=== PATIENT | male | born 1970 | race Caucasian/White ===

== ENCOUNTER → 2018-07-25 08:56 | Outpatient (CLI) | payer OTHER, SELFPAY ==
[2018-07-25 09:56] LABS: Absolute Lymphocyte Count 1.18 X10^3/ul (0.83-4.51); Absolute Neutrophil Count 2.9 X10^3/uL (2.0-7.7); Basophil# 0.02 X10^3/uL; Basophil% 0.4 % (0-1); Eosinophil# 0.05 X10^3/uL; Eosinophils% 1.1 % (0-5); Hematocrit 36.5 % (40-54); Hemoglobin 13.1 g/dl (13.0-16.5); Lymphocyte # 1.18 X10^3/ul (4.0); Lymphocyte % 25.9 % (19-41); Mean Corp Hgb Conc 35.9 g/gl (32-36); Mean Corpuscular Hgb 30.9 pg (27.0-32.0); Mean Corpuscular Volume 86.1 fL (80-94); Mean Platelet Vol. 10.1 fl (6.2-12.0); Monocyte# 0.37 X10^3/uL; Monocyte% 8.1 % (0-10); Neutrophil # 2.93 X10^3/uL (2.7-7.7); Neutrophil % 64.3 % (47-70); Platelet Count 160 K/mm3 (150-450); RBC Distribution Width CV 12.4 % (11.6-14.6); RBC Distribution Width SD 37.8 fl (35.1-43.9); Red Blood Count 4.24 M/mm3 (4.6-6.2); White Blood Count 4.6 K/mm3 (4.4-11.0)
[2018-07-25 09:59] LABS: POSITIVE COUNT NO; POSITIVE DIFFERENTIAL NO; POSITIVE MORPHOLOGY NO
[2018-07-25 10:23] LABS: ALB/GLOB Ratio 1.2 RATIO (0.9-2.4); AST(SGOT) 15 U/L (15-37); Alanine Aminotransfer ALT/SGPT 30 U/L (16-61); Albumin, Serum 3.8 g/dL (3.2-5.0); Alkaline Phosphatase 33 U/L (45-117); Anion Gap 6 (5-15); BUN 17 mg/dL (7-18); BUN/Creat Ratio 19.5 RATIO (10-20); Calcium,Total 9.2 mg/dL (8.5-10.1); Chloride 102 mmol/L (98-107); Cholesterol 143 mg/dL (200); Creatinine, Serum 0.87 mg/dL (0.70-1.30); EST Glomerular Filtration Rate 99 mL/min (>60); Est Glom Filt Rate - Afr Amer 120 mL/min (>60); Globulin 3.2 g/dL (2.2-4.2); Glucose 109 mg/dL (74-106); High Density Lipoprotein 38 mg/dL; Potassium 4.7 mmol/L (3.5-5.1); Sodium Level 138 mmol/L (136-145); Triglycerides 98 mg/dL; Very Low Density Lipoprotein 20 mg/dL (5-40)
[2018-07-28 12:37] LABS: Hemoglobin A1c 5.9 % (4.2-6.3)
== END ==
PROVIDERS: Family Provider Nurse Practitioner Family; PCP Nurse Practitioner Family; Visit Provider Nurse Practitioner Family
DX: I10 Essential (primary) hypertension (principal); E78.5 Hyperlipidemia, unspecified; R73.01 Impaired fasting glucose
CPT/HCPCS: 36415; 80053; 80061; 83036; 85025

== ENCOUNTER 2019-02-03 09:57 | Emergency (ER) | payer OTHER, SELFPAY ==
[2019-02-03 09:58] VITALS: BP 138/77; PULSE 110; RESP 18; TEMP 37.1; O2SAT 96; BMI 30.2
[2019-02-03] MEDS: DiphenhydrAMINE 25 MG Capsule 50 MG PO (10:44)
--- NOTE | 2019-02-03 10:53 | RAD_ITS ---
STUDY: X-RAY CHEST REASON FOR EXAM: Male, 48 years old. Cough and chest congestion. Sore throat. TECHNIQUE: PA and lateral views of the chest. COMPARISON: None. FINDINGS: The lungs are clear and expanded. Scattered calcified granulomas. There is no demonstrated pleural abnormality. Normal size heart. Normal mediastinum and keith. Normal visualized pulmonary arteries. Normal visualized aortic arch and descending thoracic aorta. There are degenerative changes of the visualized thoracic spine. Normal visualized ribs, clavicles, and shoulders. There is no demonstrated abnormality of the visualized soft tissue structures of the upper abdomen. RAD/Chest PA and Lateral IMPRESSION: Normal x-ray examination of the chest. Electronically Signed: Angel Luis Webster, at 11:27 EDT , Service support ,
--- NOTE | 2019-02-03 11:09 | ED.VISSUMM ---
- ER Visit Summary Date of Service: 02/03/19 Chief Complaint: Cough, congestion, sore throat History of Present Illness: The patient is a 48 M with a 3-4-day history of congestion, cough, sore throat. Patient denies fever. He is bringing up some sputum. He denies wheezing. Physical Examination: Vital signs significant only for heart rate 110. Sitting upright in bed no acute distress. He is nontoxic appearing. Head neck examination was TMs to be clear bilaterally. He has moist mucous membranes. He has 1+ tonsils with an exudate noted on the right. Heart is regular rate and rhythm. Lungs sounds are clear. Abdomen is soft and nontender. Test Results: Rapid strep is positive. Two-view chest x-ray shows no focal infiltrate per my read. Emergency Department Course and Treatment: Patient was given Benadryl here for congestion. I discussed test results with him. He will be treated with a course of Zithromax, first dose given here. Treatment Plan: [] Disposition: Discharge Impression: Strep pharyngitis This note was generated with [employer] dictation software. It may contain incorrect words, spelling, and punctuation that were not noted in review of the chart prior to signing ED Disposition - Plan for ED Patient: Referrals: Karl Riddle, ANDER-C [Primary Care Provider] -
--- NOTE | 2019-02-03 11:11 | ED.DEP ---
ED Disposition - Plan for ED Patient: Disposition: Home or Assisted Living Instructions: ED Strep Pharyngitis Conf Prescriptions: Azithromycin [Zithromax] 250 mg PO DAILY #4 tablet Referrals: Karl Riddle, [employer] [Primary Care Provider] - 1 Week
[2019-02-03 11:18] VITALS: BP 122/80; PULSE 101
[2019-02-03] MEDS: Azithromycin 250 MG Tablet 500 MG PO (11:18)
== END 2019-02-03 11:19 | disposition home or self-care (01) ==
PROVIDERS: Emergency Provider Emergency Medicine; Family Provider Nurse Practitioner Family; PCP Nurse Practitioner Family
DX: J02.0 Streptococcal pharyngitis (principal); I10 Essential (primary) hypertension; E78.00 Pure hypercholesterolemia, unspecified; Z79.899 Other long term (current) drug therapy
CPT/HCPCS: 71046; 87077; 87880; 99283

== ENCOUNTER → 2019-03-11 | Outpatient (CLI) | payer OTHER, SELFPAY ==
[2019-03-11 13:59] LABS: Absolute Lymphocyte Count 1.27 X10^3/ul (0.83-4.51); Absolute Neutrophil Count 3.7 X10^3/uL (2.0-7.7); Basophil# 0.01 X10^3/uL; Basophil% 0.2 % (0-1); Eosinophil# 0.04 X10^3/uL; Eosinophils% 0.7 % (0-5); Hematocrit 37.7 % (40-54); Hemoglobin 13.2 g/dl (13.0-16.5); Lymphocyte # 1.27 X10^3/ul (4.0); Lymphocyte % 23.3 % (19-41); Mean Corpuscular Hgb 29.8 pg (27.0-32.0); Mean Corpuscular Volume 85.1 fL (80-94); Mean Platelet Vol. 9.9 fl (6.2-12.0); Monocyte% 7.3 % (0-10); Neutrophil # 3.72 X10^3/uL (2.7-7.7); Neutrophil % 68.3 % (47-70); Platelet Count 183 K/mm3 (150-450); RBC Distribution Width CV 12.9 % (11.6-14.6); RBC Distribution Width SD 39.1 fl (35.1-43.9); Red Blood Count 4.43 M/mm3 (4.6-6.2); White Blood Count 5.5 K/mm3 (4.4-11.0)
[2019-03-11 14:06] LABS: POSITIVE COUNT NO; POSITIVE DIFFERENTIAL NO; POSITIVE MORPHOLOGY NO
[2019-03-11 14:07] LABS: Hemoglobin A1c 6.2 % (4.2-6.3)
[2019-03-11 14:20] LABS: ALB/GLOB Ratio 1.4 RATIO (0.9-2.4); AST(SGOT) 19 U/L (15-37); Alanine Aminotransfer ALT/SGPT 35 U/L (16-61); Albumin, Serum 4.3 g/dL (3.2-5.0); Alkaline Phosphatase 39 U/L (45-117); Anion Gap 5 (5-15); BUN 14 mg/dL (7-18); BUN/Creat Ratio 16.3 RATIO (10-20); Chloride 99 mmol/L (98-107); Cholesterol 148 mg/dL (200); Creatinine, Serum 0.86 mg/dL (0.70-1.30); EST Glomerular Filtration Rate 100 mL/min (>60); Est Glom Filt Rate - Afr Amer 121 mL/min (>60); Globulin 3.1 g/dL (2.2-4.2); Glucose 102 mg/dL (74-106); High Density Lipoprotein 38 mg/dL; Potassium 4.1 mmol/L (3.5-5.1); Protein, Total 7.4 g/dL (6.4-8.2); Sodium Level 136 mmol/L (136-145); Triglycerides 104 mg/dL; Very Low Density Lipoprotein 21 mg/dL (5-40)
== END | disposition home or self-care (01) ==
LOC: LAB 13:19
PROVIDERS: Family Provider Nurse Practitioner Family; PCP Nurse Practitioner Family; Referring Provider Nurse Practitioner Family; Visit Provider Nurse Practitioner Family
DX: E78.5 Hyperlipidemia, unspecified (principal); I10 Essential (primary) hypertension; R73.01 Impaired fasting glucose
CPT/HCPCS: 36415; 80053; 80061; 83036; 85025

== ENCOUNTER → 2019-09-18 | Outpatient (CLI) | payer OTHER, SELFPAY ==
[2019-09-18 11:04] LABS: Absolute Lymphocyte Count 1.17 X10^3/uL (0.83-4.51); Absolute Neutrophil Count 4.5 X10^3/uL (2.0-7.7); Basophil# 0.04 X10^3/uL; Basophil% 0.6 % (0-1); Eosinophil# 0.06 X10^3/uL; Hematocrit 39.9 % (40-54); Hemoglobin 13.5 g/dL (13.0-16.5); Lymphocyte # 1.17 X10^3/ul (4.0); Lymphocyte % 18.5 % (19-41); Mean Corp Hgb Conc 33.8 g/dL (32-36); Mean Corpuscular Hgb 30.1 pg (27.0-32.0); Mean Corpuscular Volume 88.9 fL (80-94); Mean Platelet Vol. 9.9 fl (6.2-12.0); Monocyte# 0.48 X10^3/uL; Monocyte% 7.6 % (0-10); NRBC Flagged by Analyzer 0 % (0-5); Neutrophil # 4.54 X10^3/uL (2.7-7.7); Platelet Count 176 K/mm3 (150-450); RBC Distribution Width CV 12.7 % (11.6-14.6); RBC Distribution Width SD 41.5 fl (35.1-43.9); Red Blood Count 4.49 M/mm3 (4.6-6.2); White Blood Count 6.3 K/mm3 (4.4-11.0)
[2019-09-18 11:29] LABS: ALB/GLOB Ratio 1.4 RATIO (0.9-2.4); AST(SGOT) 14 U/L (15-37); Alanine Aminotransfer ALT/SGPT 30 U/L (16-61); Albumin, Serum 4.2 g/dL (3.2-5.0); Alkaline Phosphatase 40 U/L (45-117); Anion Gap 6 (5-15); BUN 11 mg/dL (7-18); BUN/Creat Ratio 13.2 RATIO (10-20); Calcium,Total 9.3 mg/dL (8.5-10.1); Chloride 101 mmol/L (98-107); Cholesterol 142 mg/dL (200); Creatinine, Serum 0.84 mg/dL (0.70-1.30); EST Glomerular Filtration Rate 103 mL/min (>60); Est Glom Filt Rate - Afr Amer 125 mL/min (>60); Globulin 3.1 g/dL (2.2-4.2); Glucose 123 mg/dL (74-106); High Density Lipoprotein 40 mg/dL; Potassium 5.3 mmol/L (3.5-5.1); Protein, Total 7.3 g/dL (6.4-8.2); Sodium Level 137 mmol/L (136-145); Triglycerides 119 mg/dL; Very Low Density Lipoprotein 24 mg/dL (5-40)
== END | disposition home or self-care (01) ==
LOC: LAB 10:23
PROVIDERS: Family Provider Nurse Practitioner Family; PCP Nurse Practitioner Family; Referring Provider Nurse Practitioner Family; Visit Provider Nurse Practitioner Family
DX: R73.01 Impaired fasting glucose (principal); E78.5 Hyperlipidemia, unspecified; I10 Essential (primary) hypertension
CPT/HCPCS: 36415; 80053; 80061; 83036; 85025

== ENCOUNTER → 2019-11-15 07:18 | Outpatient (CLI) | payer OTHER, SELFPAY ==
--- NOTE | 2019-11-15 07:26 | EKG12_ITS ---
Test Reason : HYPERTENSION Blood Pressure : / mmHG Vent. Rate : 061 BPM Atrial Rate : 061 BPM P-R Int : 136 ms QRS Dur : 110 ms QT Int : 430 ms P-R-T Axes : 025 016 021 degrees QTc Int : 432 ms Normal sinus rhythm with sinus arrhythmia Normal ECG Confirmed by CALLI MCCORMACK, CHARI ([id number]), index editor YOLANDE CASTILLO ([id number]) on 11/16/2019 8:45:45 AM Referred By: Karl Riddle Confirmed By:CHARI MCCURDY MD
[2019-11-26 16:08] LABS: Dopamine, UR 47 ug/L (Undefined); Epinephrine, 24Ur 3 ug/24 hr (0-20); Epinephrine, Ur 1 ug/L (Undefined); Norepinephrine, 24Ur 31 ug/24 hr (0-135); Norepinephrine, Ur 11 ug/L (Undefined)
[2019-11-26 16:54] LABS: Dopamine, 24Ur 134 ug/24 hr (0-510)
== END ==
PROVIDERS: Family Provider Nurse Practitioner Family; PCP Nurse Practitioner Family; Referring Provider Nurse Practitioner Family; Visit Provider Nurse Practitioner Family
DX: I10 Essential (primary) hypertension (principal); R01.1 Cardiac murmur, unspecified; G47.10 Hypersomnia, unspecified
CPT/HCPCS: 81050; 82384; 93005; 93306

== ENCOUNTER → 2019-11-16 20:04 | Outpatient (CLI) | payer OTHER, SELFPAY | PROVIDERS: Family Provider Nurse Practitioner Family; PCP Nurse Practitioner Family; Referring Provider Nurse Practitioner Family; Visit Provider Nurse Practitioner Family | DX: G47.10 Hypersomnia, unspecified (principal) | CPT/HCPCS: 95810 ==

== ENCOUNTER → 2020-04-22 11:14 | Outpatient (CLI) | payer OTHER, SELFPAY ==
[2020-04-22 11:57] LABS: Hematocrit 37.5 % (40-54); Hemoglobin 12.6 g/dL (13.0-16.5); Mean Corp Hgb Conc 33.6 g/dL (32-36); Mean Corpuscular Hgb 29.9 pg (27.0-32.0); Mean Corpuscular Volume 88.9 fL (80-94); Mean Platelet Vol. 10.2 fl (6.2-12.0); Platelet Count 182 K/mm3 (150-450); RBC Distribution Width CV 12.3 % (11.6-14.6); RBC Distribution Width SD 39.8 fl (35.1-43.9); Red Blood Count 4.22 M/mm3 (4.6-6.2); White Blood Count 4.3 K/mm3 (4.4-11.0)
[2020-04-22 12:28] LABS: ALB/GLOB Ratio 1.2 RATIO (0.9-2.4); AST(SGOT) 14 U/L (15-37); Alanine Aminotransfer ALT/SGPT 31 U/L (16-61); Albumin, Serum 3.9 g/dL (3.2-5.0); Alkaline Phosphatase 47 U/L (45-117); Anion Gap 6 (5-15); BUN 13 mg/dL (7-18); BUN/Creat Ratio 14.7 RATIO (10-20); Calcium,Total 9.2 mg/dL (8.5-10.1); Chloride 103 mmol/L (98-107); Cholesterol 127 mg/dL (200); Creatinine, Serum 0.88 mg/dL (0.70-1.30); EST Glomerular Filtration Rate 96 mL/min (>60); Est Glom Filt Rate - Afr Amer 117 mL/min (>60); Globulin 3.3 g/dL (2.2-4.2); Glucose 182 mg/dL (74-106); High Density Lipoprotein 40 mg/dL; PSA,Total - Annual Screen 0.27 ng/mL (0.00-4.00); Potassium 4.5 mmol/L (3.5-5.1); Protein, Total 7.2 g/dL (6.4-8.2); Sodium Level 139 mmol/L (136-145); Triglycerides 96 mg/dL; Very Low Density Lipoprotein 19 mg/dL (5-40)
[2020-04-22 12:38] LABS: Hemoglobin A1c 6.1 % (3.8-5.6)
== END ==
PROVIDERS: PCP Nurse Practitioner Family; Referring Provider Nurse Practitioner Family; Visit Provider Nurse Practitioner Family
DX: E78.5 Hyperlipidemia, unspecified (principal); R73.01 Impaired fasting glucose; Z12.5 Encounter for screening for malignant neoplasm of prostate; I10 Essential (primary) hypertension
CPT/HCPCS: 36415; 80053; 80061; 83036; 84153; 85027; G0103

== ENCOUNTER → 2020-12-02 11:14 | Outpatient (CLI) | payer OTHER, SELFPAY ==
[2020-12-02 11:37] LABS: Hematocrit 39.1 % (40-54); Hemoglobin 13.3 g/dL (13.0-16.5); Mean Corpuscular Volume 88.1 fL (80-94); Mean Platelet Vol. 9.7 fl (6.2-12.0); Platelet Count 183 K/mm3 (150-450); RBC Distribution Width CV 12.6 % (11.6-14.6); RBC Distribution Width SD 40.5 fl (35.1-43.9); Red Blood Count 4.44 M/mm3 (4.6-6.2); White Blood Count 5.9 K/mm3 (4.4-11.0)
[2020-12-02 11:49] LABS: Hemoglobin A1c 6.5 % (3.8-5.6)
[2020-12-02 11:52] LABS: ALB/GLOB Ratio 1.2 RATIO (0.9-2.4); AST(SGOT) 18 U/L (15-37); Alanine Aminotransfer ALT/SGPT 41 U/L (16-61); Albumin, Serum 3.8 g/dL (3.2-5.0); Alkaline Phosphatase 51 U/L (45-117); Anion Gap 2 (5-15); BUN 11 mg/dL (7-18); Calcium,Total 8.9 mg/dL (8.5-10.1); Chloride 104 mmol/L (98-107); Cholesterol 159 mg/dL (200); Creatinine, Serum 0.84 mg/dL (0.70-1.30); EST Glomerular Filtration Rate 101 mL/min (>60); Est Glom Filt Rate - Afr Amer 122 mL/min (>60); Globulin 3.2 g/dL (2.2-4.2); Glucose 108 mg/dL (74-106); High Density Lipoprotein 43 mg/dL; Potassium 4.4 mmol/L (3.5-5.1); Sodium Level 137 mmol/L (136-145); Triglycerides 129 mg/dL; Very Low Density Lipoprotein 26 mg/dL (5-40)
== END ==
PROVIDERS: PCP Nurse Practitioner Family; Referring Provider Nurse Practitioner Family; Visit Provider Nurse Practitioner Family
DX: I10 Essential (primary) hypertension (principal); R73.01 Impaired fasting glucose; E78.5 Hyperlipidemia, unspecified
CPT/HCPCS: 36415; 80053; 80061; 83036; 85027

== ENCOUNTER → 2021-06-30 11:57 | Outpatient (CLI) | payer BC, SELFPAY ==
[2021-06-30 12:11] LABS: Hematocrit 38.2 % (40-54); Mean Corpuscular Hgb 29.9 pg (27.0-32.0); Mean Corpuscular Volume 87.8 fL (80-94); Mean Platelet Vol. 9.7 fl (6.2-12.0); Platelet Count 181 K/mm3 (150-450); RBC Distribution Width CV 12.4 % (11.6-14.6); Red Blood Count 4.35 M/mm3 (4.6-6.2); White Blood Count 5.4 K/mm3 (4.4-11.0)
[2021-06-30 12:31] LABS: ALB/GLOB Ratio 1.2 RATIO (0.9-2.4); AST(SGOT) 15 U/L (15-37); Alanine Aminotransfer ALT/SGPT 30 U/L (16-61); Alkaline Phosphatase 41 U/L (45-117); Anion Gap 6 (5-15); BUN 11 mg/dL (7-18); BUN/Creat Ratio 14.9 RATIO (10-20); Calcium,Total 9.2 mg/dL (8.5-10.1); Chloride 100 mmol/L (98-107); Cholesterol 141 mg/dL (200); Creatinine, Serum 0.74 mg/dL (0.70-1.30); EST Glomerular Filtration Rate 118 mL/min (>60); Est Glom Filt Rate - Afr Amer 143 mL/min (>60); Globulin 3.4 g/dL (2.2-4.2); Glucose 113 mg/dL (74-106); High Density Lipoprotein 49 mg/dL; Protein, Total 7.4 g/dL (6.4-8.2); Sodium Level 136 mmol/L (136-145); Triglycerides 71 mg/dL; Very Low Density Lipoprotein 14 mg/dL (5-40)
[2021-06-30 12:35] LABS: Hemoglobin A1c 6.1 % (3.8-5.6)
== END ==
PROVIDERS: PCP Nurse Practitioner Family; Referring Provider Nurse Practitioner Family; Visit Provider Nurse Practitioner Family
DX: R73.01 Impaired fasting glucose (principal); I10 Essential (primary) hypertension; E78.5 Hyperlipidemia, unspecified
CPT/HCPCS: 36415; 80053; 80061; 83036; 85027

== ENCOUNTER 2022-02-02 11:11 | Outpatient (CLI) | payer BC, SELFPAY ==
[2022-02-02 11:32] LABS: Hematocrit 36.9 % (40-54); Hemoglobin 12.9 g/dL (13.0-16.5); Mean Corpuscular Hgb 30.4 pg (27.0-32.0); Mean Corpuscular Volume 86.8 fL (80-94); Mean Platelet Vol. 9.9 fl (6.2-12.0); Platelet Count 186 K/mm3 (150-450); RBC Distribution Width SD 40.3 fl (35.1-43.9); Red Blood Count 4.25 M/mm3 (4.6-6.2); White Blood Count 6.2 K/mm3 (4.4-11.0)
[2022-02-02 12:01] LABS: ALB/GLOB Ratio 1.2 RATIO (0.9-2.4); AST(SGOT) 20 U/L (15-37); Alanine Aminotransfer ALT/SGPT 50 U/L (16-61); Alkaline Phosphatase 45 U/L (45-117); Anion Gap 3 (5-15); BUN 13 mg/dL (7-18); BUN/Creat Ratio 16.1 RATIO (10-20); Calcium,Total 9.3 mg/dL (8.5-10.1); Chloride 103 mmol/L (98-107); Cholesterol 151 mg/dL (200); Creatinine, Serum 0.81 mg/dL (0.70-1.30); EST Glomerular Filtration Rate 106 mL/min (>60); Est Glom Filt Rate - Afr Amer 129 mL/min (>60); Globulin 3.2 g/dL (2.2-4.2); Glucose 141 mg/dL (74-106); High Density Lipoprotein 45 mg/dL; Potassium 4.3 mmol/L (3.5-5.1); Protein, Total 7.2 g/dL (6.4-8.2); Sodium Level 137 mmol/L (136-145); Triglycerides 116 mg/dL; Very Low Density Lipoprotein 23 mg/dL (5-40)
[2022-02-02 12:06] LABS: Hemoglobin A1c 6.6 % (3.8-5.6)
== END 2022-02-02 23:59 | disposition home or self-care (01) ==
PROVIDERS: PCP Nurse Practitioner Family; Referring Provider Nurse Practitioner Family; Visit Provider Nurse Practitioner Family
DX: R73.01 Impaired fasting glucose (principal); I10 Essential (primary) hypertension; E78.5 Hyperlipidemia, unspecified; D64.9 Anemia, unspecified
CPT/HCPCS: 36415; 80053; 80061; 83036; 85027

== ENCOUNTER → 2022-08-31 | Outpatient (CLI) | payer BC, SELFPAY ==
[2022-08-31 12:28] LABS: Hemoglobin A1c 6.6 % (3.8-5.6)
[2022-08-31 12:43] LABS: ALB/GLOB Ratio 1.2 RATIO (0.9-2.4); AST(SGOT) 14 U/L (15-37); Alanine Aminotransfer ALT/SGPT 31 U/L (16-61); Albumin, Serum 3.9 g/dL (3.2-5.0); Alkaline Phosphatase 45 U/L (45-117); Anion Gap 5 (5-15); BUN 12 mg/dL (7-18); BUN/Creat Ratio 15.6 RATIO (10-20); Calcium,Total 9.4 mg/dL (8.5-10.1); Chloride 103 mmol/L (98-107); Cholesterol 145 mg/dL (200); Creatinine, Serum 0.77 mg/dL (0.70-1.30); EST Glomerular Filtration Rate 112 mL/min (>60); Est Glom Filt Rate - Afr Amer 136 mL/min (>60); Globulin 3.2 g/dL (2.2-4.2); Glucose 126 mg/dL (74-106); High Density Lipoprotein 50 mg/dL; PSA,Total - Annual Screen 0.41 ng/mL (0.00-4.00); Potassium 4.2 mmol/L (3.5-5.1); Protein, Total 7.1 g/dL (6.4-8.2); Sodium Level 138 mmol/L (136-145); Triglycerides 105 mg/dL; Very Low Density Lipoprotein 21 mg/dL (5-40)
== END | disposition home or self-care (01) ==
LOC: LAB 11:27
PROVIDERS: PCP Nurse Practitioner Family; Referring Provider Nurse Practitioner Family; Visit Provider Nurse Practitioner Family
DX: R73.01 Impaired fasting glucose (principal); I10 Essential (primary) hypertension; E78.5 Hyperlipidemia, unspecified; E78.1 Pure hyperglyceridemia; Z12.5 Encounter for screening for malignant neoplasm of prostate
CPT/HCPCS: 36415; 80053; 80061; 83036; 84153; G0103

== ENCOUNTER → 2023-03-29 | Outpatient (CLI) | payer BC, SELFPAY ==
[2023-03-29 12:21] LABS: Hemoglobin A1c 7.2 % (3.8-5.6)
[2023-03-29 12:49] LABS: ALB/GLOB Ratio 1.1 RATIO (0.9-2.4); AST(SGOT) 39 U/L (15-37); Alanine Aminotransfer ALT/SGPT 69 U/L (16-61); Albumin, Serum 3.9 g/dL (3.2-5.0); Alkaline Phosphatase 51 U/L (45-117); Anion Gap 4 (5-15); BUN 11 mg/dL (7-18); BUN/Creat Ratio 14.6 RATIO (10-20); Calcium,Total 9.8 mg/dL (8.5-10.1); Chloride 104 mmol/L (98-107); Cholesterol 160 mg/dL (200); Creatinine, Serum 0.75 mg/dL (0.70-1.30); EST Glomerular Filtration Rate 115 mL/min (>60); Est Glom Filt Rate - Afr Amer 139 mL/min (>60); Globulin 3.5 g/dL (2.2-4.2); Glucose 139 mg/dL (74-106); High Density Lipoprotein 42 mg/dL; Protein, Total 7.4 g/dL (6.4-8.2); Sodium Level 139 mmol/L (136-145); Triglycerides 114 mg/dL; Very Low Density Lipoprotein 23 mg/dL (5-40)
== END | disposition home or self-care (01) ==
LOC: LAB 11:39
PROVIDERS: PCP Nurse Practitioner Family; Visit Provider Nurse Practitioner Family
DX: R73.01 Impaired fasting glucose (principal); I10 Essential (primary) hypertension; E78.1 Pure hyperglyceridemia; E78.5 Hyperlipidemia, unspecified
CPT/HCPCS: 36415; 80053; 80061; 83036

== ENCOUNTER → 2023-08-13 | Outpatient (CLI) | payer BC, SELFPAY ==
[2023-08-13 16:38] LABS: ALB/GLOB Ratio 1.4 RATIO (0.9-2.4); AST(SGOT) 15 U/L (15-37); Alanine Aminotransfer ALT/SGPT 31 U/L (16-61); Albumin, Serum 3.9 g/dL (3.2-5.0); Alkaline Phosphatase 42 U/L (45-117); Anion Gap 6 (5-15); BUN 14 mg/dL (7-18); BUN/Creat Ratio 19.8 RATIO (10-20); Calcium,Total 8.9 mg/dL (8.5-10.1); Chloride 99 mmol/L (98-107); Cholesterol 98 mg/dL (200); Creatinine, Serum 0.71 mg/dL (0.70-1.30); EST Glomerular Filtration Rate 123 mL/min (>60); Est Glom Filt Rate - Afr Amer 149 mL/min (>60); Globulin 2.8 g/dL (2.2-4.2); Glucose 82 mg/dL (74-106); High Density Lipoprotein 48 mg/dL; Potassium 3.2 mmol/L (3.5-5.1); Protein, Total 6.7 g/dL (6.4-8.2); Sodium Level 135 mmol/L (136-145); Triglycerides 48 mg/dL; Very Low Density Lipoprotein 10 mg/dL (5-40)
[2023-08-13 17:12] LABS: Microalbumin,Random Urine < 5.0 mg/L (NO RANGE EST.)
== END | disposition home or self-care (01) ==
LOC: LAB 15:39
PROVIDERS: PCP Nurse Practitioner Family; Visit Provider Nurse Practitioner Family
DX: E78.5 Hyperlipidemia, unspecified (principal); E78.6 Lipoprotein deficiency; E78.1 Pure hyperglyceridemia; I10 Essential (primary) hypertension; R73.01 Impaired fasting glucose; Z12.5 Encounter for screening for malignant neoplasm of prostate
CPT/HCPCS: 36415; 80053; 80061; 82043; 82570

== ENCOUNTER → 2024-03-20 | Outpatient (CLI) | payer BC, SELFPAY ==
[2024-03-20 12:25] LABS: ALB/GLOB Ratio 1.3 RATIO (0.9-2.4); AST(SGOT) 13 U/L (15-37); Alanine Aminotransfer ALT/SGPT 28 U/L (16-61); Alkaline Phosphatase 39 U/L (45-117); Anion Gap 5 (5-15); BUN 16 mg/dL (7-18); BUN/Creat Ratio 25.4 RATIO (10-20); Calcium,Total 9.6 mg/dL (8.5-10.1); Chloride 103 mmol/L (98-107); Cholesterol 102 mg/dL (200); Creatinine, Serum 0.63 mg/dL (0.70-1.30); EST Glomerular Filtration Rate 140 mL/min (>60); Est Glom Filt Rate - Afr Amer 170 mL/min (>60); Glucose 112 mg/dL (74-106); High Density Lipoprotein 49 mg/dL; Potassium 4.5 mmol/L (3.5-5.1); Sodium Level 138 mmol/L (136-145); Triglycerides 59 mg/dL; Very Low Density Lipoprotein 12 mg/dL (5-40)
== END | disposition home or self-care (01) ==
LOC: LAB 11:36
PROVIDERS: PCP Nurse Practitioner Family; Visit Provider Nurse Practitioner Family
DX: I10 Essential (primary) hypertension (principal); E11.9 Type 2 diabetes mellitus without complications; E78.5 Hyperlipidemia, unspecified; R79.89 Other specified abnormal findings of blood chemistry
CPT/HCPCS: 36415; 80053; 80061; 83036

== ENCOUNTER → 2024-10-19 | Outpatient (CLI) | payer BC, SELFPAY ==
[2024-10-19 14:35] LABS: ALB/GLOB Ratio 1.3 RATIO (0.9-2.4); AST(SGOT) 18 U/L (15-37); Alanine Aminotransfer ALT/SGPT 25 U/L (16-61); Albumin, Serum 3.9 g/dL (3.2-5.0); Alkaline Phosphatase 36 U/L (45-117); Anion Gap 6 (5-15); BUN 14 mg/dL (7-18); BUN/Creat Ratio 19.9 RATIO (10-20); Calcium,Total 9.8 mg/dL (8.5-10.1); Chloride 106 mmol/L (98-107); Cholesterol 129 mg/dL (200); EST Glomerular Filtration Rate 124 mL/min (>60); Est Glom Filt Rate - Afr Amer 150 mL/min (>60); Glucose 105 mg/dL (74-106); High Density Lipoprotein 51 mg/dL; PSA,Total - Annual Screen 0.24 ng/mL (0.00-4.00); Potassium 3.9 mmol/L (3.5-5.1); Protein, Total 6.9 g/dL (6.4-8.2); Sodium Level 141 mmol/L (136-145); Triglycerides 46 mg/dL; Very Low Density Lipoprotein 9 mg/dL (5-40)
[2024-10-19 14:49] LABS: Hemoglobin A1c 5.1 % (3.8-5.6)
[2024-10-19 19:28] LABS: Creatinine, Urine (random) < 13.00 mg/dL (NO RANGE EST.); Microalbumin,Random Urine < 5.0 mg/L (NO RANGE EST.)
== END | disposition home or self-care (01) ==
LOC: LAB 12:57
PROVIDERS: PCP Nurse Practitioner Family; Referring Provider Nurse Practitioner Family; Visit Provider Nurse Practitioner Family
DX: Z12.5 Encounter for screening for malignant neoplasm of prostate (principal); E11.9 Type 2 diabetes mellitus without complications; I10 Essential (primary) hypertension; E78.5 Hyperlipidemia, unspecified
CPT/HCPCS: 36415; 80053; 80061; 82043; 82570; 83036; 84153; G0103

== ENCOUNTER → 2025-05-28 | Outpatient (CLI) | payer BC, SELFPAY ==
--- OUTSIDE RECORDS SUMMARY | 2025-05-28 11:29 | XMS RPT_ITS | CCD ---
Author Organization [facility] Informat ion Partnership [facility] Care Team Providers Care Control Technician Name Role Phone JANESSA VALDEZ - ZION, LILIYA Perales Primary Care Phys ician JANESAS Sheridan CNP, LILIYA Perales Attending U lorraineailgladys RIDDLE APRN - ZION, LILIYA Perales Primary Care U navailable Janessa CLINIC ADMINISTRATOR, Liliya Howard Referring Unav ailable Janessa CLINIC ADMINISTRATOR, Liliya Howard Attending Unav ailable Janessa CLINIC ADMINISTRATOR, Liliya Howard Primary Care Unav ailable Hinds CLINIC ADMINISTRATOR, Liliya Howard Attending Unav ailable Hinds CLINIC ADMINISTRATOR, Liliya Howard Primary Care Unav ailable Medications Current Medications Medication Drug Class(es) Dates Sig (Normalized) Sig (Original) amLODIPine 5 mg oral tablet (1 source) Dihydropyridine Calcium Channel Dileep Start: 03-25-2024 End: 09-21-2024 Norvasc 5 mg oral tablet Dose : 5 mg = 1 tab(s), Oral, qDay, # 90 tab(s), 1 Refill(s), Pharmacy: [facility], HTN, goal below 140/90, 176, cm, 03/25/24 15:20:00 EDT, Height, kg, 03/25/24 15:20:00 EDT, Dosing Weight Start Date: 03/25/24 Stop Date: 09/21/24 Status: Ordered azithromycin 250 mg oral tablet (3 sources) Macrolide Antimicrobial Start: 02-03-2019 take 250 mg by mouth once daily Azithromycin Active 250 MG PO DAILY February 03, 2019 12:00am fenofibrate 54 mg oral tablet (4 sources) Peroxisome Proliferator Receptor alpha Agonist Start: 03-25-2024 End: 09-21-2024 fenofibrate 54 mg oral tablet Dose : 54 mg = 1 tab(s), Oral, qDay, # 90 tab(s), 1 Refill(s), Pharmacy: [facility], Hyperlipidemia LDL goal Start Date: 03/25/24 Stop Date: 09/21/24 Status: Ordered Start: 02-03-2019 take 48 mg by mouth once daily Fenofibrate Nanocrystallized Active 48 MG PO DAILY February 03, 2019 12:00am hydroCHLOROthiazide 25 mg / lisinopril 20 mg oral tablet (3 sources) Thiazide Diuretic, Angiotensin Converting Enzyme Inhibitor Start: 02-03-2019 take 1 tablet by mouth once daily Lisinopril-Hydrochlorothiazide Active 1 TABLET PO DAILY February 03, 2019 12:00am hydroCHLOROthiazide 25 mg / valsartan 320 mg oral tablet (1 source) Thiazide Diuretic, Angiotensin 2 Receptor Dileep Start: 03-25-2024 End: 09-21-2024 take 1 tablet by mouth once daily Diovan HCT 320 mg-25 mg oral tablet Dose = 1 tab(s), Oral, qDay, # 90 tab(s), 1 Refill(s), Pharmacy: [facility], HTN, goal below 140/90, 176, cm, 03/25/24 15:20:00 EDT, Height, kg, 03/25/24 15:20:00 EDT, Dosing Weight Start Date: 03/25/24 Stop Date: 09/21/24 Status: Ordered loratadine 10 mg oral tablet (1 source) Start: 03-25-2024 End: 09-21-2024 loratadine 10 mg oral tablet Dose : 10 mg = 1 tab(s), Oral, qDay, # 90 tab(s), 1 Refill(s), Pharmacy: [facility], 176, cm, 03/25/24 15:20:00 EDT, Height, kg, 03/25/24 15:20:00 EDT, Dosing Weight Start Date: 03/25/24 Stop Date: 09/21/24 Status: Ordered metFORMIN hydrochloride 500 mg oral tablet (1 source) Biguanide Start: 03-25-2024 End: 09-21-2024 MetFORMIN (Eqv-Fortamet) 500 mg oral tablet, EXTENDED RELEASE Dose : 500 mg = 1 tab(s), Oral, qDay, May substitute for a different generic equivalent pending formulary coverage., # 90 tab(s), 1 Refill(s), Pharmacy: [facility], DM type 2, goal HbA1c Start Date: 03/25/24 Stop Date: 09/21/24 Status: Ordered metoprolol tartrate 50 mg oral tablet (4 sources) beta-Adrenerg ic Dileep Start: 03-25-2024 Metoprolol Succinate ER 50 m g oral TABLET extended release Dose : 50 mg = 1 tab(s), Oral, qDay, # 90 tab(s), 1 Refill(s), Pharmacy: [facility], HTN, goal below 140/90, 176, cm, 03/25/24 15:20:00 EDT, Height, kg, 03/25/24 15:20:00 EDT, Dosing Weight Start Date: 03/25/24 Status: Ordered Start: 02-03-2019 take 1 tablet by vanita th once daily Metoprolol Succinate (Toprol Xl) 50 MG tablet extended release 24 hr Active 50 MG PO DAILY February 03, 2019 12:00am omeprazole 40 mg delayed release oral capsule (1 source) Proton Pump Inhibitor Start: 03-25-2024 End: 09-21-2024 omeprazole 40 mg oral delayed release capsule Dose : 40 mg = 1 cap(s), Oral, qDay, # 90 cap(s), 1 Refill(s), Pharmacy: [place] [id number], GERD (gastroesophageal reflux disease), 176, cm, 03/25/24 15:20:00 EDT, Height, kg, 03/25/24 15:20:00 EDT, Dosing Weight Start Date: 03/25/24 Stop Date: 09/21/24 Status: Ordered raNITIdine 150 mg oral tablet (3 sources) Histamine-2 Receptor Antagonist Start: 02-03-2019 take 1 tablet by mouth twice daily Ranitidine (Zantac) 150 MG tablet Active 150 MG PO TWICE A DAY February 03, 2019 12:00am simvastatin 40 mg oral tablet (4 sources) HMG-CoA Reductase Inhibitor Start: 03-25-2024 End: 09-21-2024 simvastatin 40 mg oral tablet Dose : 40 mg = 1 tab(s), Oral, qHS, # 90 tab(s), 1 Refill(s), Pharmacy: [facility], Hyperlipidemia LDL goal Start Date: 03/25/24 Stop Date: 09/21/24 Status: Ordered Start: 02-03-2019 take 40 mg by mouth once daily Simvastatin Active 40 MG PO DAILY February 03, 2019 12:00am Problems Problem Classification Problem Date Documented Date Episodic/Chronic Diabetes mellitus without complication (4 sources) Type 2 diabetes mellitus; Translations: [Type 2 diabetes mellitus without complications] Onset: 03-25-2024 04-11-2023 Chronic Disorders of lipid metabolism (4 sources) Hyperlipidemia; Translations: [Hypertriglyceridemia] Onset: 05-09-2025 09-23-2019 Chronic Esophageal disorders (1 source) Gastroesophageal reflux disease 11-19-2019 Chronic Essential hypertension (4 sources) Hypertensive disorder; Translations: [Essential (primary) hypertension] Onset: 03-25-2024 05-15-2020 Chronic Heart valve disorders (1 source) Heart murmur 04-27-2020 Episodic Other nutritional; endocrine; and metabolic disorders (1 source) Body mass index 30+ - obesity 04-11-2023 Chronic Other nutritional; endocrine; and metabolic disorders (1 source) 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 Other screening for suspected conditions (not mental disorders or infectious disease) (2 sources) Other specified abnormal findings of blood chemistry; Translations: [Encounter for screening for malignant neoplasm of prostate] Onset: 11-19-2024 Episodic Other upper respiratory disease (1 source) Seasonal allergy 09-21-2019 Chronic Residual codes; unclassified (1 source) Obstructive sleep apnea syndrome 05-15-2020 Chronic Residual codes; unclassified (1 source) Chews tobacco 11-19-2019 Episodic Residual codes; unclassified (1 source) Increased body mass index 04-27-2020 Episodic Unclassified (1 source) Liver function test increased 08-15-2023 Unclassified (1 source) Patient encounter status 09-23-2019 Results Test Name Value Interpretation Reference Range Facility Comprehensive Metabolic Prof juan carlos 10-19-2024 Albumin [Mass/Vol] 3.9 g/dL Normal 3.2-5.0 [facility] Comment on above: Performed By: #### L [id number], L500.4100, L500.4050, L501.9910, L502.0250 #### [facility] [address] [place], [address] Albumin/Globulin [Mass ratio] 1.3 {ratio} Normal 0.9-2.4 [facility] Comment on above: Performed By: #### L [id number], L500.4100, L500.4050, L501.9910, L502.0250 #### [facility] [address] [place], [address] ALK P 36 U/L Low 45-117 [facility] Comment on above: Performed By: #### L [id number], L500.4100, L500.4050, L501.9910, L502.0250 #### [facility] [address] [place], [address] ALT [Catalytic activity/Vol] 25 U/L Normal 16-61 [facility] Comment on above: Performed By: #### L [id number], L500.4100, L500.4050, L501.9910, L502.0250 #### [facility] [address] [place], [address] AST [Catalytic activity/Vol] 18 U/L Normal 15-37 [facility] Comment on above: Performed By: #### L [id number], L500.4100, L500.4050, L501.9910, L502.0250 #### [facility] [address] [place], [address] Bilirubin [Mass/Vol] 0.40 mg/dL Normal 0.20-1.00 [facility] Comment on above: Result Comment: For patients on eltrombopag therapy, use of Dimension [place] TBIL is not recommended. Performed By: #### L [id number], L500.4100, L500.4050, L501.9910, L502.0250 #### [facility] [address] [place], [address] BUN/CRE 19.9 RATIO Normal 10-20 [facility] Comment on above: Performed By: #### L [id number], L500.4100, L500.4050, L501.9910, L502.0250 #### [facility] [address] [place], [address] CA,Total 9.8 mg/dL Normal 8.5-10.1 [facility] Comment on above: Performed By: #### L [id number], L500.4100, L500.4050, L501.9910, L502.0250 #### [facility] [address] [place], [address] Chloride [Moles/Vol] 106 mmol/L Normal 98-107 [facility] Comment on above: Performed By: #### L [id number], L500.4100, L500.4050, L501.9910, L502.0250 #### [facility] [address] [place], [address] CO2 [Moles/Vol] 29.0 mmol/L Normal 21.0-32.0 [facility] Comment on above: Performed By: #### L [id number], L500.4100, L500.4050, L501.9910, L502.0250 #### [facility] [address] [place], [address] Creatinine [Mass/Vol] 0.70 mg/dL Normal 0.70-1.30 [facility] Comment on above: Result Comment: The validity of the calculated GFR GFRAA in patients over 70 years has not been determined. Clinical correlation is essential. Performed By: #### L 501.9985, L500.4100, L500.4050, L501.9910, L502.0250 #### [facility] [address] [place], [address] EST GFR - AA 150 mL/min Normal >60 [facility] Comment on above: Result Comment: Afri can Gabonese GFR Calc Performed By: #### L [id number], L500.4100, L500.4050, L501.9910, L502.0250 #### [facility] [address] [place], [address] GAP 6 Normal 5-15 [facility] Comment on above: Performed By: #### L [id number], L500.4100, L500.4050, L501.9910, L502.0250 #### [facility] [address] [place], [address] GFR/1.73 sq M.predicted among non-blacks MDRD (S/P/Bld) [Vol rate/Area] 124 mL/min/{1.73_m2} Normal >60 [facility] Comment on above: Result Comment: Non- GFR Calc Performed By: #### L [id number], L500.4100, L500.4050, L501.9910, L502.0250 #### [facility] [address] [place], [address] Globulin (S) [Mass/Vol] 3.0 g/dL Normal 2.2-4.2 [facility] Comment on above: Performed By: #### L [id number], L500.4100, L500.4050, L501.9910, L502.0250 #### [facility] [address] [place], [address] Glucose [Mass/Vol] 105 mg/dL Normal 74-106 [facility] Comment on above: Result Comment: Fast ing Glucose result from 100 to 125 mg/dL suggests IMPAIRED HOMEOSTASIS per A.D.A. criteria. Performed By: #### L 501.9985, L500.4100, L500.4050, L501.9910, L502.0250 #### [facility] [address] [place], [address] Potassium [Moles/Vol] 3.9 mmol/L Normal 3.5-5.1 [facility] Comment on above: Performed By: #### L [id number], L500.4100, L500.4050, L501.9910, L502.0250 #### [facility] [address] [place], [address] Sodium [Moles/Vol] 141 mmol/L Normal 136-145 [facility] Comment on above: Performed By: #### L [id number], L500.4100, L500.4050, L501.9910, L502.0250 #### [facility] [address] [place], [address] T PROT 6.9 g/dL Normal 6.4-8.2 [facility] Comment on above: Performed By: #### L [id number], L500.4100, L500.4050, L501.9910, L502.0250 #### [facility] [address] [place], [address] Urea nitrogen [Mass/Vol] 14 mg/dL Normal 7-18 [facility] Comment on above: Performed By: #### L [id number], L500.4100, L500.4050, L501.9910, L502.0250 #### [facility] [address] [place], [address] Hemoglobin A1con 10-19-2024 HbA1c (Bld) [Mass fraction] 5.1 % Normal 3.8-5.6 [facility] Comment on above: Result Comment: Norm al < 5.7 % Prediabetic 5.7 - 6.4 % Diabetic >or= 6.5 % Please note range changes. Performed By: #### L 501.9985, L500.4100, L500.4050, L501.9910, L502.0250 #### [facility] [address] [place], [address] Lipid Profileon 10-19-2024 Cholesterol [Mass/Vol] 129 mg/dL Normal 200 [facility] Comment on above: Result Comment: <200 mg/dL Desirable 200-240 mg/dL Borderline >240 mg/dL High Risk Performed By: #### L 501.9985, L500.4100, L500.4050, L501.9910, L502.0250 #### [facility] [address] [place], [address] Cholesterol in HDL [Mass/Vol] 51 mg/dL Normal [facility] Comment on above: Result Comment: The drugs N-Acetylcysteine and Metamizole may falsely depress this assay. Reference Range HDL <40 mg/dL Low HDL Cholesterol HDL >or= 60 mg/dL High HDL Cholesterol Performed By: #### L 501.9985, L500.4100, L500.4050, L501.9910, L502.0250 #### [facility] [address] [place], [address] Cholesterol in LDL [Mass/Vol] 69 mg/dL Normal 0-130 [facility] Comment on above: Performed By: #### L [id number], L500.4100, L500.4050, L501.9910, L502.0250 #### [facility] [address] [place], [address] Cholesterol in VLDL [Mass/Vol] 9 mg/dL Normal 5-40 [facility] Comment on above: Performed By: #### L [id number], L500.4100, L500.4050, L501.9910, L502.0250 #### [facility] [address] [place], [address] Triglyceride [Mass/Vol] 46 mg/dL Normal [facility] Comment on above: Result Comment: The drugs N-Acetylcysteine and Metamizole may falsely depress this assay. Serum Triglycerides Reference Interval Normal <150 mg/dL Borderline high 150 - 199 mg/dL High 200 - 499 mg/dL Very High > or = 500 mg/dL Performed By: #### L 501.9985, L500.4100, L500.4050, L501.9910, L502.0250 #### [facility] [address] [place], [address] Microalb:Creat Ratio,Random URon 10-19-2024 MALB:CRE TNP Normal <30 mg/g CRE [facility] Comment on above: Performed By: #### L 501.9985, L500.4100, L500.4050, L501.9910, L502.0250 #### [facility] [address] [place], [address] MICROALBUMIN,UR < 5.0 Normal NO RANGE EST. [facility] Comment on above: Performed By: #### L [id number], L500.4100, L500.4050, L501.9910, L502.0250 #### [facility] [address] [place], [address] UR CREAT < 13.00 Normal NO RANGE EST. [facility] Comment on above: Performed By: #### L 501.9985, L500.4100, L500.4050, L501.9910, L502.0250 #### [facility] [address] [place], [address] PSA,Total - Annual Screenon 10-19-2024 PSA,TOT SCREEN 0.24 ng/mL Normal 0.00-4.00 [facility] Comment on above: Result Comment: This test was performed using the TPSA assay method for the [employer] system. Values obtained with different assay methods cannot be used interchangably. When changing PSA assays in the course of monitoring a patient, additional sequential testing should be carried out to confirm baseline values. Performed By: #### L 501.9985, L500.4100, L500.4050, L501.9910, L502.0250 #### [facility] [address] [place], [address] LABORATORYOrdered By: Cory Patel on 03-25-2024 Albumin DL <= 20 mg/L (U) [Mass/Vol] 204 mcg/dL Invalid Interpretation Code AO ADM SS Albumin/Creatinine DL <= 20 mg/L (U) [Mass ratio] 10 mcg/mg Normal 0 - 30 mcg/mg AO ADM SS Creatinine (U) [Mass/Vol] 19.9 mg/dL Low 39.0 - 259.0 mg/dL AO ADM SS MALBRon 03-25-2024 U Creatinine 19.9 mg/dL Low 39.0-259.0 [facility] ([place]) Comment on above: Performed By: #### M ALBR #### [place] [address] [place], [place] [address] U Microalb 204 mcg/dL Normal [facility] ([place]) Comment on above: Performed By: #### M ALBR #### [facility] [address] [place], [place] [address] U Ratio Alb/Cre 10 mcg/mg Normal 0-30 [facility] ([place]) Comment on above: Performed By: #### M ALBR #### [facility] [address] [place], [place] [address] Basophil percentageOrdered B y: Liliya Riddle on 03-29-2023 Bilirubin [Mass/Vol] 0.40 mg/dL 0.20-1.00 [facility] Comment on above: For patients on eltr ombopag therapy, use of Dimension [place] TBIL is not recommended. Chloride [Moles/Vol] 104 mmol/L 98-107 [facility] Cholesterol [Mass/Vol] 160 mg/dL <200 [facility] Comment on above: <200 mg/dL Desirable 200-240 mg/dL Borderline >240 mg/dL High Risk Glucose [Mass/Vol] 139 mg/dL 74-106 [facility] Comment on above: Fasting Glucose resu lt greater than or equal to 126 mg/dL suggests DIABETES MELLITUS per A.D.A. criteria. Potassium [Moles/Vol] 4.0 mmol/L 3.5-5.1 [facility] Protein [Mass/Vol] 7.4 g/dL 6.4-8.2 [facility] Sodium [Moles/Vol] 139 mmol/L 136-145 [facility] Triglyceride [Mass/Vol] 114 mg/dL <199 [facility] Comment on above: The drugs N-Acetylcy steine and Metamizole may falsely depress this assay.Serum Triglycerides Reference Interval Normal <150 mg/dL Borderline high 150 - 199 mg/dL High 200 - 499 mg/dL Very High > or = 500 mg/dL Laboratory - Chemistry and C hemistry - challengeOrdered By: Liliya Riddle on 03-29-2023 ALP [Catalytic activity/Vol] 51 U/L 45-117 [facility] ALT [Catalytic activity/Vol] 69 U/L 16-61 [facility] CO2 [Moles/Vol] 31.0 mmol/L 21.0-32.0 [facility] Globulin (S) [Mass/Vol] 3.5 g/dL 2.2-4.2 [facility] Urea nitrogen/Creatinine [Mass ratio] 14.6 mg/mg 10-20 [facility] No Panel InformationOrdered By: Liliya Riddle on 03-29-2023 Estimated GFR (MDRD) Amer 139 mL/min >60 [facility] Comment on above: GFR Calc Estimated GFR (MDRD) Non-Af Amer 115 mL/min >60 [facility] Comment on above: Non- GFR Calc Serum or plasma albumin zofia urement (mass/volume)Ordered By: Liliya Riddle on 03-29-2023 Albumin [Mass/Vol] 3.9 g/dL 3.2-5.0 [facility] Serum or plasma albumin/glob ulin mass ratioOrdered By: Liliya Riddle on 03-29-2023 Albumin/Globulin [Mass ratio] 1.1 {ratio} 0.9-2.4 [facility] Serum or plasma calcium zofia urement (mass/volume)Ordered By: Liliya Riddle on 03-29-2023 Calcium [Mass/Vol] 9.8 mg/dL 8.5-10.1 [facility] Serum or plasma cholesterol in HDL measurement (mass/volume)Ordered By: Liliya Riddle on 03-29-2023 Cholesterol in HDL [Mass/Vol] 42 mg/dL >40 [facility] Comment on above: The drugs N-Acetylcy steine and Metamizole may falsely depress this assay. Reference Range HDL <40 mg/dL Low HDL Cholesterol HDL >or= 60 mg/dL High HDL Cholesterol Serum or plasma cholesterol in VLDL measurement (mass/volume)Ordered By: Liliya Riddle on 03-29-2023 Cholesterol in VLDL [Mass/Vol] 23 mg/dL 5-40 [facility] Serum or plasma creatinine m easurement (mass/volume)Ordered By: Liliya Riddle on 03-29-2023 Creatinine [Mass/Vol] 0.75 mg/dL 0.70-1.30 [facility] Comment on above: The validity of the calculated GFR & GFRAA in patients over 70 years has not been determined. Clinical correlation is essential. Serum or plasma low density lipoprotein (LDL) cholesterol measurement (mass/volume)Ordered By: Liliya Riddle on 03-29-2023 Cholesterol in LDL [Mass/Vol] 95 mg/dL 0-130 [facility] Serum or plasma urea nitroge n measurement (mass/volume)Ordered By: Liliya Riddle on 03-29-2023 Urea nitrogen [Mass/Vol] 11 mg/dL 7-18 [facility] Thin prep Papanicolaou smear with manual screeningOrdered By: Liliya Riddle on 03-29-2023 Thin prep Papanicolaou smear with manual screening 39 U/L 15-37 [facility] Thin prep Papanicolaou smear with manual screening 4 5-15 [facility] Whole blood hemoglobin A1c/t otal hemoglobin ratio (mass fraction)Ordered By: Liliya Riddle on 03-29-2023 HbA1c (Bld) [Mass fraction] 7.2 % 3.8-5.6 [facility] Comment on above: Normal < 5.7 % Predi abetic 5.7 - 6.4 % Diabetic >or= 6.5 % Please note range changes. Basophil percentageon 2021 Bilirubin [Mass/Vol] 0.30 mg/dL 0.20-1.00 [facility] Work Phone: Comment on above: For patients on eltr ombopag therapy, use of Dimension [place] TBIL is not recommended. Chloride [Moles/Vol] 103 mmol/L 98-107 [facility] Work Phone: Cholesterol [Mass/Vol] 145 mg/dL <200 [facility] Work Phone: Comment on above: <200 mg/dL Desirable 200-240 mg/dL Borderline >240 mg/dL High Risk Glucose [Mass/Vol] 126 mg/dL 74-106 [facility] Work Phone: Comment on above: Fasting Glucose resu lt greater than or equal to 126 mg/dL suggests DIABETES MELLITUS per A.D.A. criteria. Potassium [Moles/Vol] 4.2 mmol/L 3.5-5.1 [facility] Work Phone: Protein [Mass/Vol] 7.1 g/dL 6.4-8.2 [facility] Work Phone: Sodium [Moles/Vol] 138 mmol/L 136-145 [facility] Work Phone: Triglyceride [Mass/Vol] 105 mg/dL <199 [facility] Work Phone: Comment on above: The drugs N-Acetylcy steine and Metamizole may falsely depress this assay.Serum Triglycerides Reference Interval Normal <150 mg/dL Borderline high 150 - 199 mg/dL High 200 - 499 mg/dL Very High > or = 500 mg/dL Laboratory - Chemistry and C hemistry - challengeon 08-31-2022 ALP [Catalytic activity/Vol] 45 U/L 45-117 [facility] Work Phone: ALT [Catalytic activity/Vol] 31 U/L 16-61 [facility] Work Phone: CO2 [Moles/Vol] 30.0 mmol/L 21.0-32.0 [facility] Work Phone: Globulin (S) [Mass/Vol] 3.2 g/dL 2.2-4.2 [facility] Work Phone: Urea nitrogen/Creatinine [Mass ratio] 15.6 mg/mg 10-20 [facility] Work Phone: No Panel Informationon 08-31 Estimated GFR (MDRD) Amer 136 mL/min >60 [facility] Work Phone: Comment on above: GFR Calc Estimated GFR (MDRD) Non-Af Amer 112 mL/min >60 [facility] Work Phone: Comment on above: Non- GFR Calc Prostate Specific Antigen Screen 0.41 ng/mL 0.00-4.00 [facility] Work Phone: Comment on above: This test was perfor med using the TPSA assay method for [employer] system. Values obtained with differentassay methods cannot be used interchangably.When changing PSA assays in the course of monitoring apatient, additional sequential testing should be carriedout to confirm baseline values. Serum or plasma albumin zofia urement (mass/volume)on 08-31-2022 Albumin [Mass/Vol] 3.9 g/dL 3.2-5.0 [facility] Work Phone: Serum or plasma albumin/glob ulin mass ratioon 08-31-2022 Albumin/Globulin [Mass ratio] 1.2 {ratio} 0.9-2.4 [facility] Work Phone: Serum or plasma calcium zofia urement (mass/volume)on 08-31-2022 Calcium [Mass/Vol] 9.4 mg/dL 8.5-10.1 [facility] Work Phone: Serum or plasma cholesterol in HDL measurement (mass/volume)on 08-31-2022 Cholesterol in HDL [Mass/Vol] 50 mg/dL >40 [facility] Work Phone: Comment on above: The drugs N-Acetylcy steine and Metamizole may falsely depress this assay. Reference Range HDL <40 mg/dL Low HDL Cholesterol HDL >or= 60 mg/dL High HDL Cholesterol Serum or plasma cholesterol in VLDL measurement (mass/volume)on 08-31-2022 Cholesterol in VLDL [Mass/Vol] 21 mg/dL 5-40 [facility] Work Phone: Serum or plasma creatinine m easurement (mass/volume)on 08-31-2022 Creatinine [Mass/Vol] 0.77 mg/dL 0.70-1.30 [facility] Work Phone: Comment on above: The validity of the calculated GFR & GFRAA in patients over 70 years has not been determined. Clinical correlation is essential. Serum or plasma low density lipoprotein (LDL) cholesterol measurement (mass/volume)on 08-31-2022 Cholesterol in LDL [Mass/Vol] 74 mg/dL 0-130 [facility] Work Phone: Serum or plasma urea nitroge n measurement (mass/volume)on 08-31-2022 Urea nitrogen [Mass/Vol] 12 mg/dL 7-18 [facility] Work Phone: Thin prep Papanicolaou smear with manual screeningon 08-31-2022 Thin prep Papanicolaou smear with manual screening 14 U/L 15-37 [facility] Work Phone: Thin prep Papanicolaou smear with manual screening 5 5-15 [facility] Work Phone: Whole blood hemoglobin A1c/t otal hemoglobin ratio (mass fraction)on 08-31-2022 HbA1c (Bld) [Mass fraction] 6.6 % 3.8-5.6 [facility] Work Phone: Comment on above: Normal < 5.7 % Predi abetic 5.7 - 6.4 % Diabetic >or= 6.5 % Please note range changes. Basophil percentageon 2021 Bilirubin [Mass/Vol] 0.30 mg/dL 0.20-1.00 [facility] Work Phone: Comment on above: For patients on eltr ombopag therapy, use of Dimension [place] TBIL is not recommended. Chloride [Moles/Vol] 103 mmol/L 98-107 [facility] Work Phone: Cholesterol [Mass/Vol] 151 mg/dL <200 [facility] Work Phone: Comment on above: <200 mg/dL Desirable 200-240 mg/dL Borderline >240 mg/dL High Risk Glucose [Mass/Vol] 141 mg/dL 74-106 [facility] Work Phone: Comment on above: Fasting Glucose resu lt greater than or equal to 126 mg/dL suggests DIABETES MELLITUS per A.D.A. criteria. Potassium [Moles/Vol] 4.3 mmol/L 3.5-5.1 [facility] Work Phone: Protein [Mass/Vol] 7.2 g/dL 6.4-8.2 [facility] Work Phone: Sodium [Moles/Vol] 137 mmol/L 136-145 [facility] Work Phone: Triglyceride [Mass/Vol] 116 mg/dL [facility] Work Phone: Comment on above: The drugs N-Acetylcy steine and Metamizole may falsely depress this assay.Serum Triglycerides Reference Interval Normal <150 mg/dL Borderline high 150 - 199 mg/dL High 200 - 499 mg/dL Very High > or = 500 mg/dL WBC (Bld) [#/Vol] 6.2 10*3/uL 4.4-11.0 [facility] Work Phone: Blood erythrocytes count (nu mber/volume)on 02-02-2022 RBC (Bld) [#/Vol] 4.25 10*6/uL 4.6-6.2 [facility] Work Phone: Blood hemoglobin measurement (mass/volume)on 02-02-2022 Hemoglobin (Bld) [Mass/Vol] 12.9 g/dL 13.0-16.5 [facility] Work Phone: Blood platelet mean volumeon 02-02-2022 Platelet mean volume (Bld) [Entitic vol] 9.9 fL 6.2-12.0 [facility] Work Phone: Determination of erythrocyte mean corpuscular volume (MCV)on 02-02-2022 MCV (RBC) [Entitic vol] 86.8 fL 80-94 [facility] Work Phone: Hematocrit Auto (Bld) [Volum e fraction]on 02-02-2022 Hematocrit (Bld) [Volume fraction] 36.9 % 40-54 [facility] Work Phone: Laboratory - Chemistry and C hemistry - challengeon 02-02-2022 ALP [Catalytic activity/Vol] 45 U/L 45-117 [facility] Work Phone: ALT [Catalytic activity/Vol] 50 U/L 16-61 [facility] Work Phone: CO2 [Moles/Vol] 31.0 mmol/L 21.0-32.0 [facility] Work Phone: Globulin (S) [Mass/Vol] 3.2 g/dL 2.2-4.2 [facility] Work Phone: Urea nitrogen/Creatinine [Mass ratio] 16.1 mg/mg 10-20 [facility] Work Phone: Laboratory - Hematology and Cell countson 02-02-2022 Erythrocyte distribution width (RBC) [Entitic vol] 40.3 fL 35.1-43.9 [facility] Work Phone: Erythrocyte distribution width (RBC) [Ratio] 13.0 % 11.6-14.6 [facility] Work Phone: MCH (RBC) [Entitic mass] 30.4 pg 27.0-32.0 [facility] Work Phone: MCHC Auto (RBC) [Mass/Vol]on 02-02-2022 MCHC (RBC) [Mass/Vol] 35.0 g/dL 32-36 [facility] Work Phone: No Panel Informationon 02-02 Estimated GFR (MDRD) Amer 129 mL/min >60 [facility] Work Phone: Comment on above: GFR Calc Estimated GFR (MDRD) Non-Af Amer 106 mL/min >60 [facility] Work Phone: Comment on above: Non- GFR Calc Platelets bldon 02-02-2022 Platelets (Bld) [#/Vol] 186 10*3/uL 150-450 [facility] Work Phone: Serum or plasma albumin zofia urement (mass/volume)on 02-02-2022 Albumin [Mass/Vol] 4.0 g/dL 3.2-5.0 [facility] Work Phone: Serum or plasma albumin/glob ulin mass ratioon 02-02-2022 Albumin/Globulin [Mass ratio] 1.2 {ratio} 0.9-2.4 [facility] Work Phone: Serum or plasma calcium zofia urement (mass/volume)on 02-02-2022 Calcium [Mass/Vol] 9.3 mg/dL 8.5-10.1 [facility] Work Phone: Serum or plasma cholesterol in HDL measurement (mass/volume)on 02-02-2022 Cholesterol in HDL [Mass/Vol] 45 mg/dL [facility] Work Phone: Comment on above: The drugs N-Acetylcy steine and Metamizole may falsely depress this assay. Reference Range HDL <40 mg/dL Low HDL Cholesterol HDL >or= 60 mg/dL High HDL Cholesterol Serum or plasma cholesterol in VLDL measurement (mass/volume)on 02-02-2022 Cholesterol in VLDL [Mass/Vol] 23 mg/dL 5-40 [facility] Work Phone: Serum or plasma creatinine m easurement (mass/volume)on 02-02-2022 Creatinine [Mass/Vol] 0.81 mg/dL 0.70-1.30 [facility] Work Phone: Comment on above: The validity of the calculated GFR & GFRAA in patients over 70 years has not been determined. Clinical correlation is essential. Serum or plasma low density lipoprotein (LDL) cholesterol measurement (mass/volume)on 02-02-2022 Cholesterol in LDL [Mass/Vol] 83 mg/dL 0-130 [facility] Work Phone: Serum or plasma urea nitroge n measurement (mass/volume)on 02-02-2022 Urea nitrogen [Mass/Vol] 13 mg/dL 7-18 [facility] Work Phone: Thin prep Papanicolaou smear with manual screeningon 02-02-2022 Thin prep Papanicolaou smear with manual screening 20 U/L 15-37 [facility] Work Phone: Thin prep Papanicolaou smear with manual screening 3 5-15 [facility] Work Phone: Whole blood hemoglobin A1c/t otal hemoglobin ratio (mass fraction)on 02-02-2022 HbA1c (Bld) [Mass fraction] 6.6 % 3.8-5.6 [facility] Work Phone: Comment on above: Normal < 5.7 % Predi abetic 5.7 - 6.4 % Diabetic >or= 6.5 % Please note range changes. Encounters Encounter Date Encounter Type Care Provider Facility Start: 05-09-2025 ambulatory Liliya Riddle CLINIC ADMINISTRATOR Facility:[facility] Start: 10-19-2024 End: 10-19-2024 ambulatory Liliya Riddle CLINIC ADMINISTRATOR Facility:[facility] Start: 03-25-2024 End: 03-30-2024 ambulatory LILIYA RIDDLE OPTICAL COATING TECHNICIAN - ACTIVATED SLUDGE OPERATOR Facility:[facility] Start: 03-25-2024 End: 03-29-2024 Outreach Lab LILIYA RIDDLE OPTICAL COATING TECHNICIAN - ACTIVATED SLUDGE OPERATOR [facility] Start: 03-29-2023 End: 03-29-2023 ambulatory [facility] Work Phone: Start: 03-29-2023 End: 03-29-2023 Patient encounter procedure [facility] Start: 08-31-2022 End: 08-31-2022 ambulatory [facility] Work Phone: Start: 08-31-2022 End: 08-31-2022 Patient encounter procedure [facility] Start: 02-02-2022 End: 02-02-2022 Patient encounter procedure [facility] Procedures Date Procedure Procedure Detail Performing Clinician Start: 06-17-2011 Electrocardiographic procedure LILIYA LOERA OPTICAL COATING TECHNICIAN - ACTIVATED SLUDGE OPERATOR Start: 11-10-1971 Tonsillectomy LILIYA RIDDLE APR N - ACTIVATED SLUDGE OPERATOR Immunizations Immunization Date Immunization Notes Care Provider Fa cili 08-15-2023 influenza, injectabl e, quadrivalent, contains preservative; Translations: [Fluarix PF Quadrivalent ] LILIYA JANESSA OPTICAL COATING TECHNICIAN - ACTIVATED SLUDGE OPERATOR [facility] 09-02-2022 influenza, injectabl e, quadrivalent, contains preservative; Translations: [Fluarix PF Quadrivalent ] LILIYA RIDDLE OPTICAL COATING TECHNICIAN - ACTIVATED SLUDGE OPERATOR [facility] 07-27-2021 influenza virus vaccine, unspecified formulation LILIYA WILEYPKINS OPTICAL COATING TECHNICIAN - ACTIVATED SLUDGE OPERATOR [facility] 09-23-2019 influenza, injectabl e, quadrivalent, preservative free; Translations: [Fluarix PF Quadrivalent ] LILIYA RIDDLE OPTICAL COATING TECHNICIAN - ACTIVATED SLUDGE OPERATOR [facility] 08-07-2018 influenza virus vaccine, unspecified formulation LILIYA WILEYPKINS OPTICAL COATING TECHNICIAN - ACTIVATED SLUDGE OPERATOR [facility] 10-13-2015 influenza virus vaccine, unspecified formulation LILIYA RIDDLE OPTICAL COATING TECHNICIAN - ACTIVATED SLUDGE OPERATOR [facility] Payers Date Payer Category Payer Self-pay [id number] 2024 Unknown [id number] 2011 Unknown [id number] 1968 Unknown [id number] [id number] Unknown [facility] [employer] [id number] Unknown [id number] [id number] Unknown [id number] [id number] [id number] Social History Date Type Detail Facility [facility]: [facility]03[facility] Start: 1970 Sex Assigned At Male [facility] Tobacco Tobacco Use: Mica ws. Type: Oral. [facility] Tobacco smoking status No Smokin g Status Entered [facility] Evaluation + Plan note Laboratory Note Date & Type Note Facility Evaluation + Plan note Future Appointments Appointment Date:09/24/2024 03:20:00 PM Scheduled Provider:LILIYA RIDDLE APRN, CNP Location:[facility] Appointment Type: OV Future Scheduled TestsProstate Specific Antigen 10/11/23Prostate Specific Antigen 09/25/24A1C Hemoglobin 10/11/23A1C Hemoglobin 09/25/24A1C Hemoglobin 02/14/24Lipid Profile 09/25/24Lipid Profile 02/14/24Albumin/Creatinine Ratio, Random Urine 09/25/24Microalbumin Level Urine 03/03/23Complete Metabolic Panel 09/25/24Complete Metabolic Panel 02/14/24 [facility] Evaluation note Note Date & Type Note Facility Evaluation note No assessment information availa [facility] Work Phone: Hospital course Narrative Note Date & Type Note Facility Hospital course Narrative No data available for this section [facility] Hospital Discharge instructions Note Date & Type Note Facility Hospital Discharge instructions No data available for this section [facility] Progress note Note Date & Type Note Facility Progress note No data available for this section [facility] Advance Directives No Advanced Directives Records Found Advance Directive Response Recorded Date/ Time Living Will No February 03, 2019 10:47am Power of Computer Science Instructor No February 03 10:47am Summary Purpose Family History No Family History Records Found Additional Source Comments Goals (unrecognized section and content) Goals may be documented in a n alternate sectionGoals may be documented in an alternate section No data available for this section Care Teams (unrecognized sec tion and content) Team Status: Active Member Role Status Dates Liliya Riddle CLINIC ADMINISTRATOR, CLINIC ADMINISTRATOR-C Family Provider Activ e Liliya Riddle CLINIC ADMINISTRATOR, CLINIC ADMINISTRATOR-C Primary Care Provider Active Team Status: Inactive Member Role Status Dates Liliya Riddle CLINIC ADMINISTRATOR, CLINIC ADMINISTRATOR-C Primary Care Provider, Attending Provider Active (unrecognized sect ion and content) No Status Records FoundNo Status Records Found INFORMATION SOURCE (unrecogn ized section and content) DATE CREATED AUTHOR 03/31/2024 [facility] ([place]) DATE CREATED AUTHOR AUTHOR'S ORGANIZ ATION 05/10/2025 [facility] FOR RECORDS PERTAINING TO PATIENTS WHO ARE OR HAVE BEEN ENROLLED IN A CHEMICAL DEPENDENCY/SUBSTANCEABUSE PROGRAM, SOME INFORMATION MAY BE OMITTED. This clinical summary was aggregated from multiple sources. Caution should be exercised in using it in the provision of clinical care. This summary normalizes information from multiple sources, and as a consequence, information in this document may materially change the coding, format and clinical context of patient data. In addition, data may be omitted in some cases. CLINICAL DECISIONS SHOULD BE BASED ON THE PRIMARY CLINICAL RECORDS. [email or web address] provides no warranty or guarantee of the accuracy or completeness of information in this document.
[2025-05-28 12:49] LABS: Cholesterol 103 mg/dL (<=200); Low Density Lipoprotein Calc. 48 mg/dL; Triglycerides 36 mg/dL; Very Low Density Lipoprotein 7 mg/dL (5-40); cholesterol:hdl ratio screen 2.14
[2025-05-28 13:00] LABS: AST(SGOT) 20 U/L (<=37); Alanine Aminotransfer ALT/SGPT 22 U/L (<=46); Albumin, Serum 4.5 g/dL (3.5-5.0); Alkaline Phosphatase 38 U/L (40-129); Anion Gap 9 (5-15); BUN 11 mg/dL (4-19); BUN/Creat Ratio 16.9 RATIO (10-20); Calcium,Total 10.2 mg/dL (7.6-11.0); Carbon Dioxide 27.4 mmol/L (21.0-32.0); Chloride 106 mmol/L (98-108); Globulin 2.5 g/dL (2.2-4.2); Glucose 107 mg/dL (70-99); Potassium 4.5 mmol/L (3.3-5.1)
== END | disposition home or self-care (01) ==
LOC: LAB 11:26
PROVIDERS: PCP Nurse Practitioner Family; Referring Provider Nurse Practitioner Family; Visit Provider Nurse Practitioner Family
DX: E78.1 Pure hyperglyceridemia (principal); E11.9 Type 2 diabetes mellitus without complications; I10 Essential (primary) hypertension; R79.89 Other specified abnormal findings of blood chemistry
CPT/HCPCS: 36415; 80053; 80061; 83036